=== PATIENT | female | born 1965 | race African-American/Black ===

== ENCOUNTER 2021-08-26 13:23 | Emergency (ER) | payer MEDICAID, OTHER ==
[~2021-08-26] VITALS: Ht 152.4 cm; Wt 59.0 kg
[2021-08-26] MEDS ORDERED: IPRATROPIUM BROMIDE (0.02%) 0.5MG/2.5ML NEB HHN STA (13:32)
[2021-08-26] MEDS: ALBUTEROL (0.083%) 2.5MG/3ML NEB HHN SCH ×3 (14:00→15:00)
[2021-08-26 14:57] LABS: BASOPHILS % 0.9 % (0.0-2.0); EOSINOPHILS % 2.5 % (0.0-5.0); HEMATOCRIT. 41.7 % (36.0-48.0); HEMOGLOBIN. 13.6 g/dL (12.0-16.0); MEAN CORPUSCULAR HEMOGLOBIN 30.4 pg (28.0-32.0); MEAN CORPUSCULAR VOLUME 93.1 fL (81.0-99.0); MEAN PLATELET VOLUME 7.4 fl (7.4-10.4); MONOCYTES % 8.7 % (2.0-8.0); NEUTROPHILS % 60.9 % (40.0-76.0); PLATELET 325 x1000/uL (130-400); RED BLOOD CELL COUNT 4.48 mill/uL (4.2-5.4); RED CELL DISTRIBUTION WIDTH 13.6 % (11.6-14.6)
[2021-08-26 15:05] LABS: CHLORIDE 107 mEq/L (98-107)
[2021-08-26 16:32] VITALS: BP 126/74
[2021-08-26] MEDS ORDERED: P50 MT (16:36)
[2021-08-26] MEDS ORDERED: BENZ-16 MT (16:37)
[2021-08-26] MEDS ORDERED: ALBU05 NEB (16:37)
[2021-08-26] MEDS ORDERED: PREDNISONE 20MG TABLET PO ONE (16:45)
== END 2021-08-26 17:02 | disposition home or self-care (01) ==
LOC: ER 13:23
DX: J44.1 Chronic obstructive pulmonary disease with (acute) exacerbation (principal); F17.200 Nicotine dependence, unspecified, uncomplicated; F12.10 Cannabis abuse, uncomplicated; Z88.6 Allergy status to analgesic agent; Z99.81 Dependence on supplemental oxygen; Z90.710 Acquired absence of both cervix and uterus; Z86.59 Personal history of other mental and behavioral disorders
CPT/HCPCS: 36415; 71045; 80053; 83880; 84484; 85025; 93005; 94640; 99285; J7512; Z7610